=== PATIENT | male | born 2000 | race Caucasian/White ===

== ENCOUNTER → 2021-03-08 | Outpatient (CLI) | payer OTHER | LOC: HYPER 07:50 | PROVIDERS: ATTEND Emergency Medicine | DX: T21.32XA Burn of third degree of abdominal wall, initial encounter (principal); T31.0 Burns involving less than 10% of body surface; E66.9 Obesity, unspecified; F17.200 Nicotine dependence, unspecified, uncomplicated; Z68.28 Body mass index [BMI] 28.0-28.9, adult; X08.8XXA Exposure to other specified smoke, fire and flames, initial encounter; Y93.89 Activity, other specified; Y92.89 Other specified places as the place of occurrence of the external cause; Y99.8 Other external cause status ==

== ENCOUNTER → 2021-03-15 | Outpatient (CLI) | payer OTHER | LOC: HYPER 07:51 | PROVIDERS: ATTEND Emergency Medicine | DX: T21.32XD Burn of third degree of abdominal wall, subsequent encounter (principal); T31.0 Burns involving less than 10% of body surface; E66.9 Obesity, unspecified; F17.200 Nicotine dependence, unspecified, uncomplicated; Z68.28 Body mass index [BMI] 28.0-28.9, adult; X08.8XXD Exposure to other specified smoke, fire and flames, subsequent encounter ==

== ENCOUNTER → 2021-03-22 | Outpatient (CLI) | payer OTHER | LOC: HYPER 07:54 | PROVIDERS: ATTEND Emergency Medicine | DX: T21.32XD Burn of third degree of abdominal wall, subsequent encounter (principal); T31.0 Burns involving less than 10% of body surface; E66.9 Obesity, unspecified; F17.200 Nicotine dependence, unspecified, uncomplicated; Z68.28 Body mass index [BMI] 28.0-28.9, adult; X08.8XXD Exposure to other specified smoke, fire and flames, subsequent encounter ==